=== PATIENT | female | born 2000 | race Caucasian/White ===

== ENCOUNTER 2018-12-13 00:02 | Emergency (ER) | payer BC ==
[2018-12-13] MEDS ORDERED: Lidocaine 2% EPI 1:200000 MPF* 10 ML VIAL INJ ONE (00:37)
[2018-12-13] MEDS ORDERED: Bupivacaine 0.5% W/EPI SDV* 10 ML VIAL INJ ONE (00:37)
--- NOTE | 2018-12-13 00:50 | ED ---
Laceration/Wound HPI - HPI Summary HPI Summary: This patient is a 18 year old female presenting to [facility] with a chief complaint of laceration. She tripped and fell on the sidewalk and had a large laceration on the chin. She denies loss of consciousness. The patient rates her pain 4/10 in severity. She has no other medical complaints. - History of Current Complaint Stated Complaint: FALL, CHIN LACERATION Time Seen by Provider: 12/13/18 00:33 Hx Obtained From: Patient Onset Severity: Mild Current Severity: Mild Pain Intensity: 4 Pain Scale Used: 0-10 Numeric Associated Signs & Symptoms: Negative - Allergy/Home Medications Allergies/Adverse Reactions: Allergies Allergy/AdvReac Type Severity Reaction Status Date / Time amoxicillin Allergy Unknown Verified 12/13/18 00:05 Reaction Details Home Medications: Home Medications Ethinyl Estradiol/Drospirenone [Myrna 3 mg-0.02 mg Tablet] 1 tab PO DAILY [History Confirmed 12/13/18] PMH/Surg Hx/FS Hx/Imm Hx Endocrine/Hematology History: Denies: Hx Diabetes Cardiovascular History: Denies: Hx Hypertension Infectious Disease History: No Infectious Disease History: Denies: Traveled Outside the [place] in Last 30 Days - Family History Known Family History: Negative: Cardiac Disease, Hypertension, Diabetes - Social History Occupation: Student Lives: Dormitory/Roommates Alcohol Use: Occasionally Substance Use Type: Reports: None Review of Systems Negative: Fever Positive: Other - Laceration Neurological: Other - Neg: Loss of consciousness All Other Systems Reviewed And Are Negative: Yes Physical Exam - Summary Physical Exam Summary: Appearance: Well-appearing, Well-nourished, lying in bed comfortable Skin: Warm, dry, no obvious rash. 2.5 cm laceration anterior middle chin. Eyes: sclera anicteric, no conjunctival pallor ENT: mucous membranes moist Neck: deferred Respiratory: No signs of respiratory distress Cardiovascular: Appears well perfused, pulses are nml Abdomen: deferred Musculoskeletal: Moving all 4 extremities without obvious discomfort Neurological: Awake and alert, mentation is normal, speech is fluent and appropriate Psychiatric: affect is normal, does not appear anxious or depressed Triage Information Reviewed: Yes Vital Signs On Initial Exam: Initial Vitals Temp Pulse Resp BP Pulse Ox 98.2 F 101 16 155/92 100 12/13/18 00:03 12/13/18 00:03 12/13/18 00:03 12/13/18 00:03 12/13/18 00:03 Vital Signs Reviewed: Yes Procedures - Laceration/Wound Repair 1 Location: face Description: Irregular Anesthesia: Local, .5%, 2.0%, Lido, Marcaine Betadine Prep?: Yes Laceration/Wound Explored: clean Closure: Single Layer Suture Type: Nylon Number of Sutures: 5 Layer Closure?: No Sterile Dressing Applied?: Yes Diagnostics - Vital Signs Vital Signs Temp Pulse Resp BP Pulse Ox 12/13/18 00:03 98.2 F 101 16 155/92 100 - Laboratory Lab Statement: Any lab studies that have been ordered have been reviewed, and results considered in the medical decision making process. Laceration Repair Course/Dx - Course Course Of Treatment: his patient is a 18 year old female presenting to [facility] with a chief complaint of laceration after a fall. The laceration required 5 nylon sutures. She had no other complaints regarding the fall. A plan for discharge was discussed with the patient and she was agreeable with this plan. - Clinical Impression Provider Diagnoses: Laceration Discharge - Sign-Out/Discharge Documenting (check all that apply): Patient Departure Patient Received Moderate/Deep Sedation with Procedure: No - Discharge Plan Condition: Good Disposition: HOME Patient Education Materials: Care For Your Stitches (ED) Referrals: [facility] @ [Outside] Additional Instructions: Sutures should be removed on Friday. Keep the wound clean, washing in the shower is good for it. Facial wounds have a low infection rate but if it starts to get red, swollen or draining we should take a look at it. - Billing Disposition and Condition Condition: GOOD Disposition: Home - Attestation Statements Document Initiated by Abigail: Yes Documenting Scribe: Jabier Jones Provider For Whom Abigail is Documenting (Include Credential): Giorgi Ann MD Scribe Attestation: IJabier, kennyed for Giorgi Ann MD on 12/15/18 at 1606. Scribe Documentation Reviewed: Yes Provider Attestation: The documentation as recorded by the Jabier roland accurately reflects the service I personally performed and the decisions made by me, Giorgi Ann MD Status of Scribe Document: Viewed
[2018-12-13] MEDS ORDERED: Lidocaine 2% W/EPI 1:100,000* 20 ML MDV INJ ONE (01:00)
[2018-12-13 01:47] VITALS: BP 136/77
== END 2018-12-13 01:47 | disposition home or self-care (01) ==
LOC: ED 00:02
DX: S01.81XA Laceration without foreign body of other part of head, initial encounter (principal); W18.09XA Striking against other object with subsequent fall, initial encounter; Y92.480 Sidewalk as the place of occurrence of the external cause; Z88.0 Allergy status to penicillin
CPT/HCPCS: 12011; 99282